=== PATIENT | male | born 2000 | race Caucasian/White ===

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

== ENCOUNTER 2022-07-30 10:55 | Emergency (ER) | payer OTHER, MEDICAID, SELFPAY ==
--- NOTE | 2022-07-30 11:03 | ED.NAVMDI ---
HPI - Nausea/Vomiting/Diarrhea General Chief complaint: Nausea/Vomiting/Diarrhea Stated complaint: Vomiting,Nausea Time Seen by Provider: 07/30/22 11:15 Source: patient and RN notes reviewed Mode of arrival: ambulatory Limitations: no limitations History of Present Illness HPI Narrative: 21-year-old male presents with concern for nausea vomiting that started this morning. He denies abdominal pain or diarrhea. Denies fever, chills, body aches. Reports he had sweats last night. He denies known sick contacts. Reports he is able to keep down water. MD elicited complaint: nausea and vomiting Related Data Allergies Allergy/AdvReac Type Severity Reaction Status Date / Time Penicillins AdvReac Severe Anaphylaxis Verified 07/30/22 10:56 Review of Systems Review of Systems: CONSTITUTIONAL: Denies malaise, chills,or fever. Reports sweats ENT: Denies rhinorrhea, congestion, sinus pain, otalgia or sore throat. CARDIOVASCULAR: Denies chest pain, palpitations, or edema. RESPIRATORY: Denies cough or dyspnea. GASTROINTESTINAL: Denies abdominal pain, diarrhea, bloody, or mucous stools. Reports nausea and vomiting GENITOURINARY: Denies dysuria or hematuria. MUSCULOSKELETAL: Denies myalgia. NEUROLOGIC: Denies headache. All systems reviewed & are unremarkable except as noted in HPI and below [facility] Social History Social History Alcohol intake: never Comments At time of signature, agree with nursing past medical, surgical, social and family history. There is no relevant family history pertinent to the presenting complaint Exam Narrative: GENERAL: Well-appearing, well-nourished, and in no acute distress. HEAD: Normocephalic, atraumatic. EYES: PERRLA, conjunctivae clear, and EOMI. ENT: Nares clear, turbinates pink, no rhinorrhea or epistaxis. Mucous membranes moist. Oropharynx without edema, erythema, or lesions. Tonsils not enlarged and without exudate. NECK: Supple. No lymphadenopathy CHEST: Speaks in full sentences. No respiratory distress. HEART: Regular rate and rhythm. ABDOMEN: Soft, flat, nondistended, nontender. No guarding, rebound tenderness, or rigidity. No pulsatile masses. Bowel sounds present in all four quadrants. No organomegaly. Negative Roth?s sign. No periumbilical tenderness. No Supra public tenderness or distension. Good femoral pulses bilaterally. No hernia noted. No scars or surface trauma. SKIN: Warm, dry, no rash. NEURO: Alert and oriented x3. PSYCH: Normal mood and affect Course Course Emergency Course: Patient is aware of diagnosis, understands and agrees to treatment plan. Anticipatory guidance given. Patient agrees to follow-up as directed and is aware of reasons to seek care at the emergency department. Portions of this record may have been created with voice recognition software Level of Care: Express Care Visit Vital Signs Vital signs: Reviewed. MDM - Nausea/Vomiting/Diarrhea MDM Narrative Medical decision making narrative: No evidence of pancreatitis, AAA, cholecystitis, choledocholithiasis, cholangitis, mesenteric ischemia, small bowel obstruction, diverticulitis, colitis, appendicitis, or pelvic etiology such as testicular torsion. Patient has no history of peptic ulcer, H. pylori, chronic aspirin NSAID or corticosteroid use, chronic alcohol use, no history of inflammatory bowel disease, no history of active abdominal infection or malignancy. Patient has no history of hernia or intra-abdominal surgeries, patient denies absence of flatus, constipation, melena, hematemesis. Patient denies post-prandial pain. No pain-out of proportion. Exam findings show no acute concerns or changes; patient is non-toxic appearing and is in no distress. Patient is appropriate for outpatient treatment and follow-up. Critical Care Time Critical Care Time Critical Care Time: No Discharge Plan Discharge Clinical Impression: Nausea & vomiting Patien
[2022-07-30 11:07] VITALS: BP 122/72; PULSE 63; RESP 16; TEMP 36.7; O2SAT 100
== END 2022-07-30 11:27 | disposition home or self-care (01) ==
PROVIDERS: Emergency Provider Nurse Practitioner
DX: R11.2 Nausea with vomiting, unspecified (principal)
CPT/HCPCS: 87804; 99213; G0463

== ENCOUNTER 2023-06-23 16:06 | Emergency (ER) | payer BC, SELFPAY ==
[2023-06-23 16:27] VITALS: BP 115/74; PULSE 95; RESP 20; TEMP 36.4; O2SAT 96
--- NOTE | 2023-06-23 16:29 | ED.GENADULT ---
HPI - General Adult General Chief complaint: Upper Respiratory Infection Stated complaint: covid symptoms Source: patient, RN notes reviewed and old records reviewed Mode of arrival: ambulatory Limitations: no limitations History of Present Illness HPI narrative: 22-year-old male presents to Express Care with complaint cough, congestion, myalgias, and fatigue that started yesterday patient states was exposed to COVID. Patient has not been taking any medications for symptoms. MD complaint: Cough and congestion Onset (ago): day(s) (1) Related Data Allergies Allergy/AdvReac Type Severity Reaction Status Date / Time Penicillins AdvReac Severe Anaphylaxis Verified 07/30/22 10:56 Review of Systems Constitutional: Constitutional: Reports no additional constitutional complaints, Reports body ache(s), Denies chills, Reports fatigue, Denies fever(s), Reports headache(s) and Reports malaise Eyes: Eyes: Reports no additional eye complaints ENT: Reports system reviewed and no additional complaints, except as documented and Reports nasal congestion Cardiovascular: Cardiovascular: Reports no additional cardiovascular complaints Respiratory: Respiratory: Reports no additional respiratory complaints, Reports chest congestion, Reports cough, Denies hemoptysis, Denies dyspnea and Denies dyspnea on exertion Neurologic: Reports system reviewed and no additional complaints, except as documented PMF[facility] Social History Social History Alcohol intake: never Comments At the time of my signature, I reviewed and agree with the nursing past medical, surgical, social, and family history. There is no relevant family history pertinent to the patient complaint. Exam Const: General: cooperative, healthy appearing, no acute distress and well nourished Nutritional Appearance: well nourished Orientation/consciousness: patient oriented x3 Limitations: no limitations HENMT: Head: normal to inspection and normocephalic Ears: external ears normal, TM's normal bilaterally, mastoids normal and Abnormal EAC present Face/Nose/Sinus: normal facial exam Face and sinus: normal facial exam Mouth: Yes Normal oral and palatal mucosa present, Yes oropharynx normal and Yes moist mucous membranes Throat: tonsils normal, uvula midline, posterior oropharynx abnormal erythema and no uvular edema Eyes: General: appearance normal, both eyes and all related structures Sclera: sclerae normal Pupils: Equal, round and reactive pupils present Resp: Effort & Inspection: normal respiratory effort, able to speak in complete sentences, no audible wheezes, no cough, no respiratory distress and no retractions Auscultation: clear to auscultation bilaterally, no crackles, no rales, no rhonchi and no wheezes Cardio: Rate: regular rate Rhythm: regular rhythm Skin: General skin exam: normal color and no rashes or lesions noted Neuro: General: patient oriented x3 Cranial nerves: Yes Equal, round and reactive pupils present Psych: Appearance: grossly normal Course Course Emergency Course: Some parts of this dictation were generated by voice recognition software and may contain typographical and/or grammatical inaccuracies. Level of Care: Express Care Visit Vital Signs Vital signs: Vital Signs Temperature 97.6 F 06/23/23 16:27 Pulse Rate 95 06/23/23 16:27 Respiratory Rate 20 06/23/23 16:27 Blood Pressure 115/74 06/23/23 16:27 Pulse Oximetry 96 06/23/23 16:27 Oxygen Delivery Room Air 06/23/23 16:27 Temperature 97.6 F 06/23/23 16:30 Pulse Rate 95 06/23/23 16:30 Respiratory Rate 20 06/23/23 16:30 Blood Pressure 115/74 06/23/23 16:30 Pulse Oximetry 96 06/23/23 16:30 Oxygen Delivery Room Air 06/23/23 16:30 Reviewed Medical Decision Making MDM Narrative Medical decision making narrative: patient presents with cough, cold, and myalgia for 1 day. Patient positive for C
[2023-06-23 16:30] VITALS: BP 115/74; PULSE 95; RESP 20; TEMP 36.4; O2SAT 96
== END 2023-06-23 16:42 | disposition home or self-care (01) ==
PROVIDERS: Emergency Provider Registered Nurse
DX: U07.1 COVID-19 (principal)
CPT/HCPCS: 87426; 99213; C9803; G0463

== ENCOUNTER 2024-06-05 15:10 | Emergency (ER) | payer BC, SELFPAY ==
--- NOTE | 2024-06-05 15:16 | ED.GENADULT ---
HPI - General Adult General Chief complaint: Nausea/Vomiting/Diarrhea Stated complaint: vomiting Time Seen by Provider: 06/05/24 15:16 Source: patient Mode of arrival: ambulatory Limitations: no limitations History of Present Illness HPI narrative: 23-year-old male patient presents to [facility] with complaints of vomiting for the past 3 days. Patient states that he did smoke marijuana night and Thursday morning started having some vomiting. Patient states he was fine all day yesterday was able to eat drink keep things down and did not smoke marijuana yesterday. Patient states he did smoke marijuana today and again started vomiting. Patient states that his last bowel movement was approximately 1 hour ago. Patient states that he did pee today last time was around noon. Patient denies any abdominal pain but states that his abdomen feels hot . Patient denies fevers, body aches or chills. Denies any sore throat, coughing or any sick symptoms. Related Data Allergies Allergy/AdvReac Type Severity Reaction Status Date / Time Penicillins Allergy Severe Anaphylaxis Verified 06/05/24 15:19 Review of Systems Review of Systems: CONSTITUTIONAL: Denies fever, chills, or sweats. EYES: Denies visual changes, redness, or discharge. ENT: Denies rhinorrhea, congestion, sore throat, or otalgia. CARDIOVASCULAR: Denies chest pain, palpitations, or edema. RESPIRATORY: Denies cough or dyspnea. GASTROINTESTINAL: Denies abdominal pain, nausea, Positive vomiting, denies diarrhea. GENITOURINARY: Denies dysuria or hematuria. SKIN: Denies rash or itching. MUSCULOSKELETAL: Denies back pain, joint pain, or myalgia. NEUROLOGIC: Denies headache, numbness, or weakness. PSYCHIATRIC: Denies anxiety or depression. PMFSH Social History Social History Alcohol intake: never Comments At the time of my signature I agree with nursing past medical history, surgical, social, and family history. There is no relevant family history pertinent to the presenting complaint. Exam Narrative: GENERAL: Well-appearing, well-nourished, and in no acute distress. HEAD: Normocephalic, atraumatic. EYES: PERRLA and EOMI. ENT: Nares clear, no rhinorrhea or epistaxis. Mucous membranes moist. NECK: Supple. No lymphadenopathy CHEST: Clear to auscultation. No respiratory distress. HEART: Regular rate and rhythm. No murmur heard. Normal peripheral pulses. ABDOMEN: Soft, flat, nondistended. No guarding, rebound tenderness, or rigid. No pulsatilla masses. hyperactive Bowel sounds present in all four quadrants. No organomegaly. Negative Roth?s sign. No periumbicial tenderness. No Supra public tenderness or distension. Good femoral pulses bilaterally. No hernia noted. No scars or surface trauma. EXTREMITIES: Normal range of motion. No edema. SKIN: Warm, dry, no rash. NEURO: No focal deficits. Alert and oriented x3. Course Course Level of Care: Express Care Visit Vital Signs Vital signs: Vital Signs Temperature 36.7 C 06/05/24 15:20 Pulse Rate 84 06/05/24 15:20 Respiratory Rate 18 06/05/24 15:20 Blood Pressure 112/66 06/05/24 15:20 Pulse Oximetry 99 06/05/24 15:20 Oxygen Delivery Room Air 06/05/24 15:20 Temperature 36.7 C 06/05/24 15:20 Pulse Rate 84 06/05/24 15:20 Respiratory Rate 18 06/05/24 15:20 Blood Pressure 112/66 06/05/24 15:20 Pulse Oximetry 99 06/05/24 15:20 Oxygen Delivery Room Air 06/05/24 15:20 Vital signs reviewed. Medical Decision Making MDM Narrative Medical decision making narrative: discussed with patient the fact that he is not running any fevers or having any abdominal pain is reassuring. Discussed with him about cyclic vomiting syndrome and this could be associated with his marijuana use. Discussed with patient I will discharge him home with some Zofran to see if this helps with the nausea vomiting however if he continues to vomit or has not Peed in the next 3 hours I highly recommend that he go to the ER for IV hydration and further workup. Discussed with patient obviously if he starts running fevers or having abdominal pain he needs to go to the ER for further evaluation. Patient verbalized understanding denies any other questions or concerns at this time. Differential Diagnosis Differential Diagnosis: Differential diagnosis: Appendicitis, ovarian torsion, gallbladder disease, ovarian torsion, pancreatitis, lower lobe pneumonia,AAA, AMI or ACS, DKA, diverticulitis. Vital Signs Vital Signs: Vital Signs Temperature 36.7 C 06/05/24 15:20 Pulse Rate 84 06/05/24 15:20 Respiratory Rate 18 06/05/24 15:20 Blood Pressure 112/66 06/05/24 15:20 Pulse Oximetry 99 06/05/24 15:20 Oxygen Delivery Room Air 06/05/24 15:20 Temperature 36.7 C 06/05/24 15:20 Pulse Rate 84 06/05/24 15:20 Respiratory Rate 18 06/05/24 15:20 Blood Pressure 112/66 06/05/24 15:20 Pulse Oximetry 99 06/05/24 15:20 Oxygen Delivery Room Air 06/05/24 15:20 Critical Care Time Critical Care Time Critical Care Time: No Discharge Plan Discharge Clinical Impression: Vomiting Patient Disposition: Home, Self-Care Condition: Stable Instructions: Antibiotic Form, Gastroenteritis (ED) Additional Instructions: Give fluids to prevent dehydration. Low-fat diet with increase in fluids, such as sports drinks, gelatin, soups, to prevent dehydration. Other suggestions include chicken noodle soup, Rice, bread, crackers, cereal, yogurt bananas, and applesauce. High sugar foods and drinks (soda and juices), can worsen diarrhea. Eating fried foods can worsen diarrhea. For vomiting: The cummings is to give small amounts at a time. When the stomach is upset, and will vomit when it fills. Prevent this by giving only 1 cup at a time. And to give more in 15 minutes. This will keep the stomach empty, so the patient is less likely to vomit. If you do not vomit after this, you can slowly increase the amount in the cup each time. Medicines to stop vomiting can help. Call your doctor or go to the ER if your condition worsens or: Fever (temperature greater than 10 2?F [39?C]) occurs. There is blood in the stool diarrhea or if the stool is black. Lots of diarrhea occurs. Lots of vomiting occurs or the vomit is bloody or green or looks like chocolate or coffee. The belly looks very full or big. Symptoms of dehydration occurs (inside of the mouth looks sticky, urinating less, weakness, tiredness, pale color, eyes look hollow or sucken). Abdominal pain is worse. Prescriptions: New ondansetron 4 mg tablet,disintegrating 4 mg PO Q6H PRN (Reason: nausea and vomiting) 3 Days Qty: 12 0RF Follow-up/Referrals: PHYSICIAN,PAINT DIPPER [Primary Care Provider] - Stand Alone Forms: Work/School Release IP Time of Disposition: 15:43
[2024-06-05 15:20] VITALS: BP 112/66; PULSE 84; RESP 18; TEMP 36.7; O2SAT 99
== END 2024-06-05 15:47 | disposition home or self-care (01) ==
PROVIDERS: Emergency Provider Nurse Practitioner Family
DX: R11.10 Vomiting, unspecified (principal)
CPT/HCPCS: 99213; G0463